=== PATIENT | male | born 1980 | race African-American/Black ===

== ENCOUNTER 2016-05-15 08:56 | Inpatient (IN) | payer OTHER ==
--- NOTE | ~2016-05-15 | PA ---
Unit #: [id number] #: [id number] Patient: PAUL SHI [id number] [facility] [address] [place] [address] [id number] MR#: [id number] NAME: PAUL SHI ROOM: 66 Age: 36 Sex: M Admission Date: 05/15/2016 : 1980 Date of Assessment: 05/16/2016 Attending Physician: Deny Nick M.D. Admitting Physician: Deny Nick M.D. Primary Care Physician: Generic Doctor Not In System PSYCHIATRIC ASSESSMENT IDENTIFYING INFORMATION The patient is a 36-year-old single male admitted after he had summoned police to his home voicing positive suicidal ideation and pain in his neck. INFORMANT(S) Patient. RELIABILITY Fair. CHIEF COMPLAINT My neck hurts. HISTORY OF PRESENT ILLNESS The patient is a 36-year-old male who summoned EMS to his home early yesterday morning complaining of increasing neck pain as well as some depressed mood and thoughts of suicide. He had also complained of poor sleep. The patient has a history of alcohol and cocaine abuse and had recently used cocaine. The patient when seen this morning is rather vague in his complaints. He is reporting no suicidal ideation at this point and denies any homicidal ideation. He does complain of some recent poor sleep but denies recent changes in appetite. 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 The patient lives with his aunt who apparently recently underwent brain surgery. The patient states that he is concerned that she "still looks sick." The patient has been incarcerated in the past on child support charges. He reports no pending legal charges at this time. PAST PSYCHIATRIC HISTORY None. FAMILY HISTORY Noncontributory. SOCIAL HISTORY The patient lives with his aunt. He completed the 9th grade. He is the father of 1 out of wedlock child. MEDICAL HISTORY Noncontributory. Unit #: [id number] #: [id number] Patient: PAUL SHI MEDICATION HISTORY None. ALLERGIES None. SUBSTANCE ABUSE HISTORY He reports substance use as noted previously and is a smoker. MENTAL STATUS EXAM At this time, reveals the patient to be a well-developed, well-nourished heavily tattooed male appearing his stated age. He is in no apparent physical distress at the time of the examination. He is awake, alert, oriented in all spheres. His mood is mildly dysphoric. His affect constricted and somewhat strange. Speech is oddly evasive. There are no gross deficits in memory or cognition noted. Intelligence is judged to be in the average range based on fund of knowledge. The patient is generally cooperative during interview. He is currently denying suicidal or homicidal ideation or psychotic features. Judgement and insight appear to be intact. ASSETS AND LIABILITIES Patient's assets to be assessed. Liabilities, lack of resources. ADMITTING DIAGNOSES 1. Dysthymic disorder. 2. Cocaine use disorder. 3. Alcohol use disorder. PSYCHIATRIC PLAN/TREATMENT GOALS The patient remains hospitalized for safety and stabilization. At this point, his mood symptoms are somewhat difficult to tease out and I suspect that yesterday's symptoms may have been related to post cocaine depressive symptoms as the patient seems significantly brighter today. I will transfer the patient to a chemical dependence treatment unit and will at this point hold on initiation of antidepressant or other psychotropic medication. ESTIMATED LENGTH OF STAY Three to five days. Dictated by... Deny Nick M.D. NADEGE/rajesh TD: 05/16/2016 11:35 JOB #: [id number] Unit #: [id number] #: [id number] Patient: PAUL SHI PSYCHIATRIC ASSESSMENT X Deny Nick MD X PSYCHIATRIC ASSESSMENT
--- NOTE | ~2016-05-15 | PN ---
Unit #: [id number] #: [id number] Patient: PAUL SHI [id number] [facility] [address] [place] [address] [id number] I MR#: [id number] NAME: PAUL SHI ROOM: P202 Age: 36 Sex: M Admission Date: 05/15/2016 : 1980 Attending Physician: Deny Nick M.D. Admitting Physician: Deny Nick M.D. Primary Care Physician: Generic Doctor Not In System [facility] PROGRESS NOTES DATE 05/16/2016 DISCUSSION The patient continues to endorse positive suicidal ideation stating that he will use his "pellet gun" to end his life if discharged. He continues to have vague complaints of chest pain and anxiety and is participating to no significant degree within the therapeutic milieu. I have gently, but firmly contrived the patient regarding my expectations and that he increase his participation. Dictated by... Deny Nick M.D. CB/shaina TD: 05/17/2016 14:23 JOB #: [id number] [facility] PROGRESS NOTES X Deny Nick MD PROGRESS NOTE
--- NOTE | ~2016-05-15 | DS ---
Unit #: [id number] #: [id number] Patient: PAUL SHI [id number] [facility] [address] [place] [address] [id number] MR#: [id number] NAME: PAUL SHI ROOM: P202 Age: 36 Sex: M Admission Date: 05/15/2016 : 1980 Discharge Date: 05/18/2016 Attending Physician: Deny Nick M.D. Primary Care Physician: Generic Doctor Not In System DISCHARGE SUMMARY REASON FOR ADMISSION The patient is a 36-year-old male, initially admitted complaining of neck and back pain and then voicing suicidal ideation. HOSPITAL COURSE The patient was admitted to the [address] [place] [address] unit and placed on suicide precautions. Routine detoxification protocol for alcohol was initiated. The patient exhibited little signs or symptoms of withdrawal. He declined medication throughout his stay in the hospital and participated to no significant degree. Whatsoever, he continued with vague complaints regarding his neck and back, but denied suicidal ideation when seen by this physician on 05/17/2016. On 05/18/2016, the patient continued to deny suicidal or homicidal ideation and exhibited no signs or symptoms of withdrawal. Discharge was ordered. FINAL DIAGNOSES Cocaine use disorder, alcohol use disorder. DISPOSITION ON DISCHARGE No psychotropic medications were ordered at the time of discharge and as per the patient's request, no arrangements for followup were made. PROGNOSIS The patient's prognosis is considered fair at best. ADDENDUM It is recommended the patient continue previously prescribed Mobic 15 mg once daily for osteoarthritis and Flexeril 10 mg q.8 hours for muscle relaxation; however, this physician will not prescribe these medications for the patient. Dictated by... Deny Nick M.D. CB/gregorio TD: 05/19/2016 00:05 JOB #: [id number] Unit #: [id number] #: [id number] Patient: PAUL SHI DISCHARGE SUMMARY X Deny Nick MD DISCHARGE SUMMARY
--- NOTE | ~2016-05-15 | HP ---
Unit #: [id number] #: [id number] Patient: BRODERICK HSI [id number] [place] [address] [id number] I MR#: [id number] NAME: BRODERICK SHI ROOM: [facility] Age: 36 Sex: M Admission Date: 05/15/2016 : 1980 Attending Physician: Deny Nick M.D. Admitting Physician: Deny Nick M.D. Primary Care Physician: Generic Doctor Not In System HISTORY AND PHYSICAL HISTORY OF PRESENT ILLNESS Broderick is a 36 year old admitted to [address] [place] [address] because he is having "problems with my thinking." PAST MEDICAL HISTORY Nothing reported. PAST SURGICAL HISTORY Cranial surgery. ALLERGIES No known drug allergies. SOCIAL HISTORY Smokes 1 pack per day. Drinks beer on a regular basis and admits to using cocaine occasionally. FAMILY HISTORY Medically noncontributory. REVIEW OF SYSTEMS CONSTITUTIONAL: No fever or chills. HEENT: Denies any sore throat, ear pain or runny nose. CARDIOVASCULAR: Denies chest pain, irregular heart rhythm or palpitations. CHEST: Denies shortness of breath or cough. No hemoptysis. GASTROINTESTINAL: Denies nausea, vomiting, diarrhea or chronic constipation. ENDOCRINE: Denies history of increased thirst or urination. No recent significant weight loss or gain. GENITOURINARY: Denies dysuria, frequency, or hematuria. SKIN: Denies any rashes. HEMATOLOGIC: Denies history of increased bleeding or bruising. MUSCULOSKELETAL: Denies any hot, swollen joints. No generalized muscle pain. NEUROLOGIC: Denies problems with vision or speech. No frequent, severe headaches. No numbness, tingling or weakness in any extremities. Denies loss of bladder or bowel control. CURRENT MEDICATIONS 1. Zyprexa Zydis 10 mg q. 8 hours p.r.n. 2. Milk of Magnesia p.r.n. 3. Maalox p.r.n. 4. Tylenol p.r.n. Unit #: [id number] #: [id number] Patient: BRODERICK SHI 5. Nicotine patch 14 mg daily. PHYSICAL EXAMINATION GENERAL: Alert, well-nourished, in no apparent distress. VITAL SIGNS: Blood pressure 134/60, heart rate 64, respirations 16, temperature 98.6. WEIGHT: 154. HEIGHT: 5 feet 2 inches. SKIN: Warm and dry without rash or lesion. HEENT: Normocephalic. TMs not viewed. Oral and nasal passages clear. Conjunctivae clear. PERRLA. EOMs intact. NECK: Supple without lymphadenopathy or thyromegaly. HEART: Regular rate and rhythm without murmur. LUNGS: Clear. ABDOMEN: Soft, nontender. : Not done. EXTREMITIES: No evidence of cyanosis, clubbing or edema. Moves all without focal deficit. NEUROLOGICAL: Grossly within normal limits. Cranial Nerves: II: Visual munoz are intact. III, IV AND : Extraocular movements are intact. Pupils are equal, round and reactive to light. V: Facial sensation is grossly normal. VII: Facial movements and expression are normal. VIII: Auditory acuity grossly intact. IX, X: Uvula is midline. Phonation is normal. XI: Patient shrugs shoulders and turns head normally. XII: Tongue protrudes in the midline. Sensory and Motor Function: Sensory and motor sensation is grossly normal. Motor: moves all extremities well. Coordination: Gait is normal. Deep Tendon Reflexes: Intact. IMPRESSION Psychiatric admission. RECOMMENDATIONS PSYCHIATRIC: Per psychiatrist. MEDICAL: See no contraindications to participate in facility's activities. MEDICAL PROGNOSIS Good. MEDICAL CONDITION Stable. Dictated by... Dayna Avila P.A.-C. for Marcos Pardo/rajesh TD: 05/16/2016 11:01 JOB #: [id number] Unit #: [id number] #: [id number] Patient: BRODERICK SHI HISTORY AND PHYSICAL X Dayna Avila HISTORY AND PHYSICAL
--- NOTE | ~2016-05-15 | CO ---
Unit #: [id number] #: [id number] Patient: BRODERICK SHI [id number] [place] [address] [id number] I MR#: [id number] NAME: BRODERICK SHI ROOM: P202 Age: 36 Sex: M Admission Date: 05/15/2016 : 1980 Attending Physician: Deny Nick M.D. Primary Care Physician: Generic Doctor Not In System Consultation Date: 05/16/2016 CONSULTATION REPORT HISTORY OF PRESENT ILLNESS Broderick is a 36-year-old male, who has complaints of pain in his neck and head off and on for the past 5 years. He reports the pain in his neck starts as a pinching pain and causes a headache. He takes ibuprofen and massages his neck, which seems to help. He has never had any diagnosis. No numbness or tingling in his fingers. No changes in vision. No other complaints. PHYSICAL EXAMINATION GENERAL: Alert and oriented, in no acute distress. CARDIAC: Regular rate and rhythm. No murmur, gallop, or rub. RESPIRATORY: Clear to auscultation bilaterally. NEURO: Cranial nerves intact. ASSESSMENT AND PLAN Neck and head pain. We will begin meloxicam 15 mg p.o. daily p.r.n. neck pain and Flexeril 10 mg p.o. q.8 hours p.r.n. neck pain. Dictated by... Yoko Talbot A.P.R.N. for Marcos Pardo/gregorio TD: 05/16/2016 23:45 JOB #: [id number] CONSULTATION REPORT X YOKO MONTANO APRN X CONSULTATION REPORT
[2016-05-16 11:32] LABS: BASOPHIL% 1.2 % (0-2.5); EOSINOPHIL# 0.2 X10e3 (0-0.7); EOSINOPHIL% 6.2 % (0.0-7.0); HEMATOCRIT 44.6 % (38.0-50.0); HEMOGLOBIN 14.5 gm/dL (13.0-16.0); LYMPHOCYTE# 1.6 X10e3 (1.0-3.5); LYMPHOCYTE% 43.6 % (17.0-45.0); MEAN CELL VOLUME 89.3 FL (83-96); MEAN CORPUSCULAR HEMOGLOBIN 29.1 PG (28-34); MEAN CORPUSCULAR HGB CONC 32.6 g/dL (30-36); MEAN PLATELET VOLUME 8.8 FL (6.5-11.5); MONOCYTE# 0.5 X10e3 (0-1.0); MONOCYTE% 12.4 % (3.0-12.0); NEUTROPHIL# 1.4 X10e3 (1.5-7.1); NEUTROPHIL% 36.6 % (40-75); PLATELET COUNT 220 X10e3 (140-420); RED CELL DISTRIBUTION WIDTH 13.7 % (11.0-15.5); WHITE BLOOD COUNT 3.8 X10e3 (4.0-10.5)
[2016-05-16 11:34] LABS: DIFF IND NO
[2016-05-16 12:10] LABS: THYROID STIMULATING HORMONE 0.33 uIU/ml (0.34-5.60)
[2016-05-16 12:11] LABS: ALBUMIN SERUM 4.1 g/dL (3.5-5.0); ALKALINE PHOSPHATASE 47 U/L (32-92); ALT (SGPT) 17 U/L (10-40); AST (SGOT) 20 U/L (10-42); BILIRUBIN,TOTAL 1.3 mg/dL (0.2-2.0); BLOOD UREA NITROGEN 14 mg/dL (9-23); BUN/CREATININE RATIO 11.66; CALCIUM SERUM 9.3 mg/dL (8.4-10.2); CARBON DIOXIDE 29 mmol/L (22-31); CHLORIDE 104 mmol/L (100-111); CREATININE SERUM 1.2 mg/dL (0.6-1.4); GLOM FILT RATE Estimated ABOVE60 mL/min (>60); GLUCOSE FASTING 81 mg/dL (70-110); PROTEIN TOTAL SERUM 7.2 g/dL (6.0-8.3); SODIUM 137 mmol/L (135-145)
[2016-05-16 12:17] LABS: FREE THYROXIN (T4) 0.91 ng/dL (0.58-1.64)
[2016-05-16 14:24] LABS: URINE APPEARANCE TURBID; URINE BILIRUBIN NEG (NEG); URINE BLOOD TRACE (NEG); URINE COLOR YELLOW; URINE GLUCOSE NEG (NEG); URINE KETONE NEG (NEG); URINE LEUKOCYTE ESTERASE TRACE (NEG); URINE NITRATE NEG (NEG); URINE PROTEIN NEG (NEG); URINE SPECIFIC GRAVITY 1.029 (1.003-1.035); URINE UROBILINOGEN 0.2 MG/DL (NEG)
[2016-05-16 14:27] LABS: URBCS1 AUWI 0-2 /[HPF] (0-2); URINE BACTERIA AUWI NEG (NEGATIVE); URINE SQUAMOUS EPITHELIAL CELL NONE SEEN /[HPF]
[2016-05-16 14:40] LABS: AMPHETAMINE NEG (NEG); BARBITURATES NEG (NEG); BENZODIAZEPINES NEG (NEG); COCAINE POS (NEG); MARIJUANA NEG (NEG); OPIATES NEG (NEG); TRICYCLIC ANTIDEPRESSANTS NEG (NEG); U METHADONE NEG (NEG)
== END 2016-05-18 17:33 | disposition home or self-care (01) | DRG 881 ==
LOC: POF 08:56 → P1S 11:08 → P2L 12:31 → POF 15:30 → P2L 15:32 → P2S 05-16 14:04 → POF 05-18 13:57 → P2S 05-18 14:00
PROVIDERS: Specialist
DX: F34.1 Dysthymic disorder (principal); F14.20 Cocaine dependence, uncomplicated; R45.851 Suicidal ideations; F10.20 Alcohol dependence, uncomplicated; F17.200 Nicotine dependence, unspecified, uncomplicated
CPT/HCPCS: 80053; 80307; 81003; 84439; 84443; 85025; 90688

== ENCOUNTER 2016-07-07 09:44 | Inpatient (IN) | payer OTHER ==
--- NOTE | ~2016-07-07 | DS ---
Unit #: [id number] #: [id number] Patient: PAUL SHI [id number] [facility] [address] [place] [address] [id number] I MR#: [id number] NAME: PAUL SHI ROOM: [facility] Age: 36 Sex: M Admission Date: 07/07/2016 : 1980 Discharge Date: 07/07/2016 Attending Physician: Deny Nick M.D. Primary Care Physician: Generic Doctor Not In System DISCHARGE SUMMARY REASON FOR ADMISSION The patient is a 36-year-old male, admitted complaining of neck and back pain. HOSPITAL COURSE The patient was admitted to the [address] [place] [address] unit and placed on suicide precautions initially. He was seen by this physician on 07/07/2016 and at that point, the patient again claimed that he was in the hospital secondary to back and neck pain. He denied suicidal ideation, though he did state that he often became lonely when his aunt leaves him at home alone. It was explained to the patient that these are not criteria for hospitalization in the psychiatric facility. The patient was understanding and agreed with plan for followup through the auspices of community mental health resources. Discharge was ordered. FINAL DIAGNOSES Malingering, cocaine use disorder, alcohol use disorder. DISPOSITION ON DISCHARGE No psychotropic or other medications were ordered at the time of discharge. PROGNOSIS The patient's prognosis is considered guarded. Dictated by... Deny Nick M.D. NADEGE/gregorio TD: 07/08/2016 00:56 JOB #: [id number] DISCHARGE SUMMARY Page 1 of 1 X Deny Nick MD X DISCHARGE SUMMARY
--- NOTE | ~2016-07-07 | HP ---
Unit #: [id number] #: [id number] Patient: BRODERICK SHI [id number] [facility] [address] [place] [address] [id number] I MR#: [id number] NAME: BRODERICK SHI ROOM: [facility] Age: 36 Sex: M Admission Date: 07/07/2016 : 1980 Attending Physician: Deny Nick M.D. Admitting Physician: Deny Nick M.D. Primary Care Physician: Generic Doctor Not In System HISTORY AND PHYSICAL Broderick is a 36 year old who was admitted and discharged within the first 24 hours. He was not seen for an H and P. Dictated by... Dayna Avila P.A.-C. for Marcos Pardo/rajesh TD: 07/07/2016 18:40 JOB #: [id number] HISTORY AND PHYSICAL Page 1 of 1 X Dayna Avila X HISTORY AND PHYSICAL
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
== END 2016-07-07 16:15 | disposition home or self-care (01) | DRG 951 ==
LOC: P2L 09:44
DX: Z76.5 Malingerer [conscious simulation] (principal); F14.90 Cocaine use, unspecified, uncomplicated

== ENCOUNTER 2016-09-12 13:00 | Inpatient (IN) | payer OTHER ==
--- NOTE | ~2016-09-12 | PN ---
Unit #: [id number] #: [id number] Patient: PAUL SHI [id number] [facility] [address] [place] [address] [id number] I MR#: [id number] NAME: PAUL SHI ROOM: P186 Age: 36 Sex: M Admission Date: 09/12/2016 : 1980 Attending Physician: Deny Nick M.D. Admitting Physician: Deny Nick M.D. Primary Care Physician: Primary Care Physician Linda ARTHUR PROGRESS NOTES DATE 09/15/2016 DISCUSSION The patient remains seclusive to room with little participation within the therapeutic milieu. He is today denying suicidal ideation or psychotic symptom. Should he sustain progress discharge will likely take place tomorrow. Dictated by... Deny Nick M.D. CB/jody TD: 09/16/2016 04:18 JOB #: [id number] [facility] PROGRESS NOTES Page 1 of 1 X Deny Nick MD X PROGRESS NOTE
--- NOTE | ~2016-09-12 | DS ---
Unit #: [id number] #: [id number] Patient: PAUL SHI [id number] [facility] [address] [place] [address] [id number] I MR#: [id number] NAME: PAUL SHI ROOM: [facility] Age: 36 Sex: M Admission Date: 09/12/2016 : 1980 Discharge Date: 09/16/2016 Attending Physician: Deny Nick M.D. Primary Care Physician: Primary Care Physician No DISCHARGE SUMMARY REASON FOR ADMISSION The patient is a 36-year-old male, admitted following after he reported positive suicidal ideation related to increasing cocaine abuse. HOSPITAL COURSE The patient was admitted to the [facility] Unit, placed on suicide precautions. No medications were ordered during the patient's stay in the hospital. His participation within the therapeutic milieu was quite poor with the patient exhibiting little if any, investment in treatment. By 09/16, the patient exhibited no signs or symptoms of withdrawal and denied suicidal ideation. He requested discharge and it was so ordered. FINAL DIAGNOSES Cocaine use disorder. Mood disorder, unspecified. DISPOSITION ON DISCHARGE No psychotropic or other medications ordered at the time of discharge. FOLLOWUP Followup will take place through the auspices of community mental health and chemical dependency treatment resources. PROGNOSIS The patient's prognosis is considered guarded secondary to his lack of investment in treatment. Dictated by... Deny Nick M.D. CB/belkisl TD: 09/17/2016 10:21 JOB #: [id number] Unit #: [id number] #: [id number] Patient: PAUL SHI DISCHARGE SUMMARY Page 1 of 1 X Deny Nick MD X DISCHARGE SUMMARY
--- NOTE | ~2016-09-12 | PA ---
Unit #: [id number] #: [id number] Patient: PAUL SHI [id number] [facility] [address] [place] [address] [id number] I MR#: [id number] NAME: PAUL SHI ROOM: [facility] Age: 36 Sex: M Admission Date: 09/12/2016 : 1980 Date of Assessment: 09/13/2016 Attending Physician: Deny Nick M.D. Admitting Physician: Deny Nick M.D. Primary Care Physician: Primary Care Physician No PSYCHIATRIC ASSESSMENT IDENTIFYING INFORMATION The patient is a 36-year-old -[place] male admitted after presenting to this facility voicing positive suicidal ideation. CHIEF COMPLAINT None given. INFORMANT(S) Chart. Patient could not be aroused for interview. HISTORY OF PRESENT ILLNESS The patient is a 36-year-old -[place] male admitted after he had come to this facility voicing positive suicidal ideation. The patient reports that he has been using 40 to 50 dollars' worth of cocaine on a daily basis and reports that as a result he has been having increasing depressive symptoms, unstable mood and positive suicidal ideation with a plan to shoot himself or hang himself. The patient states that he is not acting on these thoughts simply because he has been "too weak to do so." The patient reports no previous psychiatric or chemical dependence treatment. He is currently on no prescribed psychotropic medications. PAST PSYCHIATRIC HISTORY None. PAST MEDICAL HISTORY Noncontributory. MEDICATIONS None. ALLERGIES None. FAMILY HISTORY Noncontributory. SOCIAL HISTORY The patient's cocaine use as noted previously. He also reports intermittent alcohol use and is a smoker. MENTAL STATUS EXAM At this time, reveals the patient to be a soundly sleeping male appearing his stated age. He is in no apparent physical Unit #: [id number] #: [id number] Patient: PAUL SHI distress at the time of the examination. Multiple attempts to arouse the patient are unsuccessful. ASSETS AND LIABILITIES ASSETS: To be assessed. LIABILITIES: Lack of resources. DIAGNOSTIC IMPRESSION 1. Cocaine use disorder. 2. Dysthymic disorder. TREATMENT PLAN Patient remains hospitalized for safety and stabilization. Suicidal precautions remain in place. At this point no pharmacotherapy intervention will be undertaken. The patient will be encouraged to participate within the therapeutic milieu and suicidal precautions remain in place. ESTIMATE LENGTH OF STAY IN THE HOSPITAL Three to five days. Dictated by... Deny Nick M.D. NADEGE/jody TD: 09/14/2016 03:00 JOB #: [id number] PSYCHIATRIC ASSESSMENT Page 1 of 1 X Deny Nick MD X PSYCHIATRIC ASSESSMENT
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
--- NOTE | ~2016-09-12 | HP ---
Unit #: [id number] #: [id number] Patient: PAUL SHI [id number] [facility] [address] [place] [address] [id number] I MR#: [id number] NAME: PAUL SHI ROOM: 86 Age: 36 Sex: M Admission Date: 09/12/2016 : 1980 Attending Physician: Deny Nick M.D. Admitting Physician: Deny Nick M.D. Primary Care Physician: Primary Care Physician No HISTORY AND PHYSICAL The patient is a 36-year-old male admitted to [facility] on 09/12/2016 for suicidal ideations. The patient had a recent admission on 08/29/2016 where a full history and physical was completed. That history and physical has been reviewed. No changes need to be made. Dictated by... Ulises Curtis/jody TD: 09/14/2016 05:33 JOB #: [id number] HISTORY AND PHYSICAL Page 1 of 1 X KYA MARTINEZ APRN X HISTORY AND PHYSICAL
[2016-09-13 11:30] LABS: BASOPHIL# 0.1 X10e3 (0-0.3); BASOPHIL% 1.6 % (0-2.5); EOSINOPHIL# 0.3 X10e3 (0-0.7); EOSINOPHIL% 6.2 % (0.0-7.0); HEMATOCRIT 42.6 % (38.0-50.0); LYMPHOCYTE# 1.5 X10e3 (1.0-3.5); LYMPHOCYTE% 30.8 % (17.0-45.0); MEAN CELL VOLUME 90.5 FL (83-96); MEAN CORPUSCULAR HEMOGLOBIN 29.8 PG (28-34); MEAN CORPUSCULAR HGB CONC 32.9 g/dL (30-36); MEAN PLATELET VOLUME 9.3 FL (6.5-11.5); MONOCYTE# 0.6 X10e3 (0-1.0); MONOCYTE% 11.3 % (3.0-12.0); NEUTROPHIL# 2.5 X10e3 (1.5-7.1); NEUTROPHIL% 50.1 % (40-75); PLATELET COUNT 261 X10e3 (140-420); RED BLOOD COUNT 4.71 X10e (3.90-5.60); RED CELL DISTRIBUTION WIDTH 13.5 % (11.0-15.5); WHITE BLOOD COUNT 4.9 X10e3 (4.0-10.5)
[2016-09-13 11:33] LABS: DIFF IND NO
[2016-09-13 11:47] LABS: ALBUMIN SERUM 3.7 g/dL (3.5-5.0); BILIRUBIN,TOTAL 0.8 mg/dL (0.2-2.0); BUN/CREATININE RATIO 5.83; CALCIUM SERUM 9.4 mg/dL (8.4-10.2); CREATININE SERUM 1.2 mg/dL (0.6-1.4); GLOM FILT RATE Estimated 90.3 mL/min (>60); POTASSIUM 4.4 mmol/L (3.5-5.1); PROTEIN TOTAL SERUM 6.7 g/dL (6.0-8.3)
[2016-09-14 10:00] LABS: URINE APPEARANCE CLEAR; URINE BILIRUBIN NEG (NEG); URINE BLOOD NEG (NEG); URINE COLOR YELLOW; URINE GLUCOSE NEG (NEG); URINE KETONE NEG (NEG); URINE LEUKOCYTE ESTERASE NEG (NEG); URINE NITRATE NEG (NEG); URINE PROTEIN NEG (NEG); URINE SPECIFIC GRAVITY 1.014 (1.003-1.035); URINE UROBILINOGEN 0.2 MG/DL (NEG)
[2016-09-14 10:14] LABS: AMPHETAMINE NEG (NEG); BARBITURATES NEG (NEG); BENZODIAZEPINES NEG (NEG); COCAINE NEG (NEG); MARIJUANA NEG (NEG); OPIATES NEG (NEG); TRICYCLIC ANTIDEPRESSANTS NEG (NEG); U METHADONE NEG (NEG)
== END 2016-09-16 16:15 | disposition home or self-care (01) | DRG 897 ==
LOC: P1E 14:40
PROVIDERS: Specialist
DX: F14.10 Cocaine abuse, uncomplicated (principal); R45.851 Suicidal ideations; F34.1 Dysthymic disorder
CPT/HCPCS: 80053; 80307; 81003; 85025

== ENCOUNTER 2016-09-19 08:00 | Inpatient (IN) | payer OTHER ==
[~2016-09-19] VITALS: Ht 165.1 cm; Wt 68.0 kg
--- NOTE | ~2016-09-19 | PN ---
Unit #: [id number] #: [id number] Patient: PAUL SHI [id number] [facility] [address] [place] [address] [id number] MR#: [id number] NAME: PAUL SHI ROOM: [facility] Age: 36 Sex: M Admission Date: 09/19/2016 : 1980 Attending Physician: Deny Nick M.D. Admitting Physician: Marcos Munguia PROGRESS NOTES DATE 09/21/2016 DISCUSSION The patient is (1) when confronted by his decision today regarding his failure to attend an on-unit therapeutic activity. This had been his standard behavior during his previous admission to this facility when he was failing to attend any therapeutic activities. The patient today complains of "my big toe hurts." I have explained to the patient that this facility does not specialize in podiatry, and that he will need to seek care for this outside of the hospital. In the meantime, we will continue his trial of Remeron and except a.m. discharge. Dictated by... Deny Nick M.D. NADEGE/tee TD: 09/21/2016 15:17 JOB #: [id number] JERSON BALL NOTES Page 1 of 1 X Deny Nick MD PROGRESS NOTE
--- NOTE | ~2016-09-19 | DS ---
Unit #: [id number] #: [id number] Patient: PAUL SHI [id number] [facility] [address] [place] [address] [id number] MR#: [id number] NAME: PAUL SHI [facility] Age: 36 Sex: M Admission Date: 09/19/2016 : 1980 Discharge Date: 09/22/2016 Attending Physician: Deny Nick M.D. Primary Care Physician: Primary Care Physician No DISCHARGE SUMMARY REASON FOR ADMISSION The patient is a 36-year-old male, admitted after he presented to this facility claiming to be suicidal and abusing cocaine. HOSPITAL COURSE The patient was initially admitted to the [facility] unit, but was transferred to the [address] [place] [address] unit and placed on room lockout precautions. He remained purposefully vague throughout his stay in the hospital regarding his reason for being in the hospital, claiming that he was "bored at home" and upset that there was no food in his home. The patient did participate briefly within the therapeutic milieu. He was started on Remeron 15 mg at h.s., which he tolerated without complaint. By 09/22/2016, the patient was felt to have reached maximum benefit from inpatient psychiatric care. Discharge was ordered. FINAL DIAGNOSES Cocaine use disorder; depressive disorder, unspecified. DISPOSITION ON DISCHARGE The patient is discharged on the following medications; Remeron 15 mg at bedtime. DISCHARGE INSTRUCTIONS No dietary or physical restrictions were placed on the patient at the time of discharge. FOLLOWUP Followup will take place through the auspices of community mental health and chemical dependency treatment resources. PROGNOSIS The patient's prognosis is considered fair. Dictated by... Deny Nick M.D. CB/gregorio TD: 09/22/2016 23:58 JOB #: [id number] Unit #: [id number] #: [id number] Patient: PAUL SHI DISCHARGE SUMMARY Page 1 of 1 X Deny Nick MD X DISCHARGE SUMMARY
--- NOTE | ~2016-09-19 | PN ---
Unit #: [id number] #: [id number] Patient: PAUL SHI [id number] [facility] [address] [place] [address] [id number] I MR#: [id number] NAME: PAUL SHI ROOM: 13 Age: 36 Sex: M Admission Date: 09/19/2016 : 1980 Attending Physician: Deny Nick M.D. Admitting Physician: Deny Nick M.D. Primary Care Physician: Primary Care Physician Linda ARTHUR PROGRESS NOTES DATE 09/20/2016 DISCUSSION The patient is active within the therapeutic milieu and is actually pleasant in his interactions with this physician today. Staff reports that the patient is sleeping poorly and he is complaining of some depressive symptoms. I will add Remeron 15 mg at h.s. to address the patient's symptoms. Dictated by... Deny Nick M.D. CB/jody TD: 09/20/2016 22:49 JOB #: [id number] JERSON PROGRESS NOTES Page 1 of 1 X Deny Nick MD PROGRESS NOTE
--- NOTE | ~2016-09-19 | PA ---
Unit #: [id number] #: [id number] Patient: PAUL SHI [id number] [facility] [address] [place] [address] [id number] I MR#: [id number] NAME: PAUL SHI ROOM: [facility] Age: 36 Sex: M Admission Date: 09/19/2016 : 1980 Date of Assessment: 09/19/2016 Attending Physician: Deny Nick M.D. Admitting Physician: Deny Nick M.D. Primary Care Physician: Primary Care Physician No PSYCHIATRIC ASSESSMENT IDENTIFYING INFORMATION The patient is a 36-year-old male admitted after he had presented to this facility claiming to be suicidal. CHIEF COMPLAINT None given. INFORMANT(S) Patient and chart, reliability fair. HISTORY OF PRESENT ILLNESS The patient is a 36-year-old male just discharged from this facility on 09/16/2016. During that stay in the hospital, the patient participated to no significant degree whatsoever in programming and was always rather vague as to why he had come to the hospital. The patient has returned to the hospital and has been brought by the Crisis Intervention Team whose note indicates that he had called the [facility] crisis line claiming to be suicidal. When queried regarding this today, the patient states that he is "all bored and shit" at home and states that "there ain't no food" at home and that this was the reason for his call to the hospital. He is at this point denying suicidal ideation. For more complete history of present illness, please refer to previously dictated notes. PAST PSYCHIATRIC HISTORY Reviewed, no changes. PAST MEDICAL HISTORY Reviewed, no changes. MEDICATIONS None. ALLERGIES None. FAMILY HISTORY Reviewed, no changes. SOCIAL HISTORY Reviewed, no changes. MENTAL STATUS EXAMINATION Unit #: [id number] #: [id number] Patient: PAUL SHI Examination at this time reveals the patient to be a well-developed well-nourished male appearing stated age. He is in no apparent physical distress at the time of examination. He is awake, alert, and oriented in all spheres. His mood is mildly dysphoric and irritable, his affect constricted. Speech is generally well-coherent. There are no gross deficits in memory or cognition noted. Intelligence is judged to be in the average range based on fund of knowledge. The patient is less than optimally cooperative during interview. He is denying current suicidal or homicidal ideation and denies any psychotic symptoms. ASSETS AND LIABILITIES The patient's assets are to be assessed. Liabilities: Tendency towards malingering, lack of investment in treatment. DIAGNOSTIC IMPRESSION 1. Cocaine use disorder by history. 2. Mood disorder unspecified. 3. Malingering. TREATMENT PLAN The patient remains hospitalized for safety and stabilization. Given his threats of suicide, we will transfer the patient to the [address] [place] [address] and to assure her safety place him on room lockout precautions from 6 a.m. to 10 p.m. The patient will be encouraged to participate in appropriate order of milieu activities. No pharmacologic intervention is felt to be needed at this time. ESTIMATED LENGTH OF STAY 3 to 4 days. Dictated by... Deny Nick M.D. NADEGE/evelyne TD: 09/19/2016 14:34 JOB #: [id number] PSYCHIATRIC ASSESSMENT Page 1 of 1 X Deny Nick MD X PSYCHIATRIC ASSESSMENT
--- NOTE | ~2016-09-19 | HP ---
Unit #: [id number] #: [id number] Patient: PAUL SHI [id number] [facility] [address] [place] [address] [id number] MR#: [id number] NAME: PAUL SHI ROOM: 13 Age: 36 Sex: M Admission Date: 09/19/2016 : 1980 Attending Physician: Deny Nick M.D. Admitting Physician: Deny Nick M.D. Primary Care Physician: Primary Care Physician No HISTORY AND PHYSICAL The patient is a 36-year-old male admitted to [facility] on 09/19/2016 for suicidal ideations. The patient had a recent admission on 08/29/2016 where a full history and physical was completed. That history and physical has been reviewed, no changes need to be made. Dictated by... Ulises Curtis/jody TD: 09/21/2016 02:05 JOB #: [id number] HISTORY AND PHYSICAL Page 1 of 1 X KYA MARTINEZ APRN X HISTORY AND PHYSICAL
== END 2016-09-22 15:47 | disposition home or self-care (01) | DRG 885 ==
LOC: P1S 10:03 → P1E 10:03 → P1S 14:57
DX: F39 Unspecified mood [affective] disorder (principal); R45.851 Suicidal ideations; Z76.5 Malingerer [conscious simulation]

== ENCOUNTER 2016-10-05 11:00 | Inpatient (IN) | payer OTHER ==
[~2016-10-05] VITALS: Ht 167.6 cm; Wt 68.0 kg
--- NOTE | ~2016-10-05 | PN ---
Unit #: [id number] #: [id number] Patient: PAUL SHI [id number] [facility] [address] [place] [address] [id number] MR#: [id number] NAME: PAUL SHI ROOM: P256 Age: 36 Sex: M Admission Date: 10/05/2016 : 1980 Attending Physician: Deny Nick M.D. Admitting Physician: Deny Nick M.D. Primary Care Physician: Marcos Lockhart PROGRESS NOTES DATE 10/07/2016 DISCUSSION Staff reports that the patient has been active within the therapeutic milieu with a threat of room lockout hanging over his head. He continues to endorse feelings of depression but reports reduced suicidal ideation when seen today. Dictated by... Deny Nick M.D. CB/evelyne TD: 10/07/2016 13:27 JOB #: [id number] JERSON PROGRESS NOTES Page 1 of 1 X Deny Nick MD PROGRESS NOTE
--- NOTE | ~2016-10-05 | PN ---
Unit #: [id number] #: [id number] Patient: PAUL SHI [id number] [facility] [address] [place] [address] [id number] MR#: [id number] NAME: PAUL SHI ROOM: P256 Age: 36 Sex: M Admission Date: 10/05/2016 : 1980 Attending Physician: Deny Nick M.D. Admitting Physician: Deny Nick M.D. Primary Care Physician: Marcos Lockhart PROGRESS NOTES DATE 10/08/2016 DISCUSSION The patient is abed today complaining of severe headache. We have ordered p.r.n. Tylenol. I told the patient that we expect him to continue participation within the therapeutic milieu, but I am excusing him from today's art therapy secondary to his complaints of headache. I have also told the patient to expect a.m. discharge. Dictated by... Deny Nick M.D. CB/bzg TD: 10/08/2016 14:04 JOB #: [id number] JERSON PROGRESS NOTES Page 1 of 1 X Deny Nick MD X PROGRESS NOTE
--- NOTE | ~2016-10-05 | DS ---
Unit #: [id number] #: [id number] Patient: PAUL SHI [id number] [facility] [address] [place] [address] [id number] MR#: [id number] NAME: PAUL SHI ROOM: [facility] Age: 36 Sex: M Admission Date: 10/05/2016 : 1980 Discharge Date: 10/09/2016 Attending Physician: Deny Nick M.D. Primary Care Physician: Maldonado Cruz M.D. DISCHARGE SUMMARY REASON FOR ADMISSION The patient is a 36-year-old male admitted complaining of suicidal ideation with plan to shoot himself using a pellet gun. HOSPITAL COURSE The patient was admitted to the [facility] unit and placed on suicide precautions. He complained that he had been unable to afford his prescription for Remeron and he was therefore taken off this medication and begun on citalopram 20 mg daily to addressed his depressive symptoms. It remained the feeling of this position that the patient's primary pathology was related to a combination of cocaine abuse, characterologic pathology and no small degree of malingering; however, by 10/09/2016, however, the patient did participate more actively within the therapeutic milieu, having been threatened with room lockout if he did not do so by 10/09/2016. The patient denied suicidal ideation. Discharge was ordered. FINAL DIAGNOSES 1. Dysthymic disorder. 2. Cocaine use disorder. 3. Rule out malingering. DISPOSITION ON DISCHARGE The patient is discharged on the following medications: 1. Citalopram 20 mg daily for depression. 2. No dietary or physical restrictions were placed upon this patient at the time of discharge and will take place in the auspices of community mental health resources and chemical dependent resources. PROGNOSIS Considered fair. Dictated by... Deny Nick M.D. CB/mary grace TD: 10/12/2016 09:31 JOB #: [id number] Unit #: [id number] #: [id number] Patient: PAUL SHI DISCHARGE SUMMARY Page 1 of 1 X Deny Nick MD X DISCHARGE SUMMARY
--- NOTE | ~2016-10-05 | PA ---
Unit #: [id number] #: [id number] Patient: PAUL SHI [id number] [facility] [address] [place] [address] [id number] I MR#: [id number] NAME: PAUL SHI ROOM: P256 Age: 36 Sex: M Admission Date: 10/05/2016 : 1980 Date of Assessment: 10/06/2016 Attending Physician: Deny Nick M.D. Admitting Physician: Deny Nick M.D. Primary Care Physician: Maldonado Cruz M.D. PSYCHIATRIC ASSESSMENT IDENTIFYING INFORMATION The patient is a 36-year-old single male, admitted to the [address] [place] [address] unit, after presenting to this facility claiming to be suicidal. INFORMANT(S) Patient and chart, reliability fair. CHIEF COMPLAINT None given. HISTORY OF PRESENT ILLNESS This is the third admission in approximately four weeks for this aotplz-sywu-utxb-old male, who presents complaining of positive depressed mood and suicidal ideation. At the time of his last discharge from this facility, the patient was provided with prescription for mirtazapine but sites financial reasons for not having been able to fill the medication. He does have a history of cocaine dependence but reports that he has not used for some time. During his last hospitalization, the patient complained for boredom at home as well as lack of food at home and continues to report these as issues. The patient states that he has been neglecting ALDs, and states that he does not wish to live any longer. He reports thoughts of shooting himself with a pellet gun or overdosing on medication for suicide plans, for more complete history of present illness please refer to previously dictated notes. PAST PSYCHIATRIC HISTORY Reviewed and no changes. PAST MEDICAL HISTORY Reviewed and no changes. MEDICATIONS The patient is on no prescribed medications at this time. ALLERGIES None. FAMILY HISTORY Reviewed and no changes. SOCIAL HISTORY Unit #: [id number] #: [id number] Patient: PAUL SHI Reviewed and no changes. MENTAL STATUS EXAMINATION At this time, reveals the patient to be a well-developed, well-nourished male, appearing his stated age. He is in no apparent physical distress at the time of the examination. He is awake, alert, and oriented in all spheres. His mood is mildly dysphoric and a tad irritable. His affect blunted. Speech is generally relevant and coherent. There are no gross deficits to memory or cognition noted. Intelligence is judged to be in the average range based on fund of knowledge. The patient is less than optimally cooperative throughout the interview. He continues to endorse positive suicidal ideation. He denies homicidal ideation. He denies any psychotic symptoms. His judgment and insight appear to be reasonably intact. No signs of substance withdrawal are noted. The patient is noted to be purposefully vague when answering questions regarding mood, goals, treatment, et cetera. ASSETS To be assessed. LIABILITIES Lack of investment in treatment. DIAGNOSTIC IMPRESSION [place] I: Dysthymic disorder. Rule out malingering. Cocaine use disorder. TREATMENT PLAN The patient remains hospitalized for safety and stabilization, I will go ahead and discontinue the Remeron given the patient's complaints about the cost of this medication and will instead begin citalopram 20 mg daily a medication which should be more readily available at a lower kim, it remains my contention that the patient's main reason for being here; however, is probably his lack of resources at home. This having been evidenced by his total lack of investment in the therapeutic treatment milieu during previous hospitalizations. To encourage the patient to participate I have informed him that should he miss a single group that we will go ahead and institute a room lockout policy to encourage full participation and insure the patient's safety. ESTIMATED LENGTH OF STAY IN THE HOSPITAL Yslzg-fk-zofm days. Dictated by... Deny Nick M.D. CB/gumaro TD: 10/06/2016 13:13 JOB #: [id number] Unit #: [id number] #: [id number] Patient: PAUL SHI PSYCHIATRIC ASSESSMENT Page 1 of 1 X Deny Nick MD X PSYCHIATRIC ASSESSMENT
--- NOTE | ~2016-10-05 | HP ---
Unit #: [id number] #: [id number] Patient: BRODERICK SHI [id number] [place] [address] [id number] MR#: [id number] NAME: BRODERICK SHI ROOM: P256 Age: 36 Sex: M Admission Date: 10/05/2016 : 1980 Attending Physician: Deny Nick M.D. Admitting Physician: Deny Nick M.D. Primary Care Physician: Maldonado Cruz M.D. HISTORY AND PHYSICAL HISTORY OF PRESENT ILLNESS Broderick is a 36 year old admitted to [address] [place] [address] with depression and verbalizing wanting to hurt himself. He has had numerous admissions to this facility over the past few months for the same. PAST MEDICAL HISTORY Nothing reported. PAST SURGICAL HISTORY Cranial surgery. ALLERGIES No known drug allergies. SOCIAL HISTORY He smokes one pack per day. Denies alcohol and illicit drug use. FAMILY HISTORY Medically noncontributory. REVIEW OF SYSTEMS CONSTITUTIONAL: No fever or chills. HEENT: Denies any sore throat, ear pain or runny nose. CARDIOVASCULAR: Denies chest pain, irregular heart rhythm or palpitations. CHEST: Denies shortness of breath or cough. No hemoptysis. GASTROINTESTINAL: Denies nausea, vomiting, diarrhea or chronic constipation. ENDOCRINE: Denies history of increased thirst or urination. No recent significant weight loss or gain. GENITOURINARY: Denies dysuria, frequency, or hematuria. SKIN: Denies any rashes. HEMATOLOGIC: Denies history of increased bleeding or bruising. MUSCULOSKELETAL: Denies any hot, swollen joints. No generalized muscle pain. NEUROLOGIC: Denies problems with vision or speech. No frequent, severe headaches. No numbness, tingling or weakness in any extremities. Denies loss of bladder or bowel control. CURRENT MEDICATIONS 1. Remeron 15 mg q.h.s. 2. Milk of Magnesia p.r.n. 3. Maalox p.r.n. Unit #: [id number] #: [id number] Patient: BRODERICK SHI PHYSICAL EXAMINATION GENERAL: Alert, well-nourished, in no apparent distress. VITAL SIGNS: Blood pressure 124/78, heart rate 80, respirations 16, temperature 98.6. WEIGHT: 150 pounds. HEIGHT: 5'6". SKIN: Warm and dry without rash or lesion. HEENT: Normocephalic. TMs not viewed. Oral and nasal passages clear. Conjunctivae clear. Pupils equal, round and reactive to light and accommodation. Extraocular movements intact. NECK: Supple without lymphadenopathy or thyromegaly. HEART: Regular rate and rhythm without murmur. LUNGS: Clear. ABDOMEN: Soft, nontender. : Not done. EXTREMITIES: No evidence of cyanosis, clubbing or edema. Moves all extremities without focal deficit. NEUROLOGICAL: Grossly within normal limits. Cranial Nerves: II: Visual munoz are intact. III, IV AND : Extraocular movements are intact. Pupils are equal, round and reactive to light. V: Facial sensation is grossly normal. VII: Facial movements and expression are normal. VIII: Auditory acuity grossly intact. IX, X: Uvula is midline. Phonation is normal. XI: Patient shrugs shoulders and turns head normally. XII: Tongue protrudes in the midline. Sensory and Motor Function: Sensory and motor sensation is grossly normal. Motor: moves all extremities well. Coordination: Gait is normal. Deep Tendon Reflexes: Intact. IMPRESSION Psychiatric admission RECOMMENDATIONS PSYCHIATRIC: Per psychiatrist. MEDICAL: I see no contraindications to participating in facility's activities. MEDICAL PROGNOSIS Good. MEDICAL CONDITION Stable. Dictated by... Dayna Avila P.A.-C. for Marcos Pardo/jody TD: 10/05/2016 22:40 JOB #: [id number] Unit #: [id number] #: [id number] Patient: BRODERICK SHI HISTORY AND PHYSICAL Page 1 of 1 X Dayna Avila HISTORY AND PHYSICAL
[2016-10-06 10:07] LABS: AMPHETAMINE NEG (NEG); BARBITURATES NEG (NEG); BENZODIAZEPINES NEG (NEG); COCAINE NEG (NEG); MARIJUANA NEG (NEG); OPIATES NEG (NEG); TRICYCLIC ANTIDEPRESSANTS NEG (NEG); U METHADONE NEG (NEG)
== END 2016-10-09 16:45 | disposition home or self-care (01) | DRG 881 ==
LOC: P2L 14:21 → POF 14:21 → P2L 15:40
PROVIDERS: Specialist
DX: F34.1 Dysthymic disorder (principal); F14.10 Cocaine abuse, uncomplicated; R51 Headache
CPT/HCPCS: 80307

== ENCOUNTER 2016-10-24 11:00 | Inpatient (IN) | payer OTHER ==
[~2016-10-24] VITALS: Ht 167.6 cm; Wt 69.9 kg
--- NOTE | ~2016-10-24 | HP ---
Unit #: [id number] #: [id number] Patient: PAUL SHI [id number] [facility] [address] [place] [address] [id number] MR#: [id number] NAME: PAUL SHI ROOM: P212 Age: 36 Sex: M Admission Date: 10/24/2016 : 1980 Attending Physician: Deny Nick M.D. Admitting Physician: Deny Nick M.D. Primary Care Physician: Maldonado Cruz M.D. HISTORY AND PHYSICAL The patient is a 36-year-old male admitted to [address] [place] [address] on 10/24/2016 for suicidal ideations. Patient had a recent admission on 10/05/2016 where a full history and physical was completed. That history and physical has been reviewed. No changes need to be made. Dictated by... Ulises Curtis/jody TD: 10/26/2016 01:10 JOB #: [id number] HISTORY AND PHYSICAL Page 1 of 1 X KYA MARTINEZ APRN X HISTORY AND PHYSICAL
--- NOTE | ~2016-10-24 | PA ---
Unit #: [id number] #: [id number] Patient: PAUL SHI [id number] [facility] [address] [place] [address] [id number] I MR#: [id number] NAME: PAUL SHI ROOM: P212 Age: 36 Sex: M Admission Date: 10/24/2016 : 1980 Date of Assessment: 10/25/2016 Attending Physician: Deny Nick M.D. Admitting Physician: Deny Nick M.D. Primary Care Physician: Maldonado Cruz M.D. PSYCHIATRIC ASSESSMENT IDENTIFYING INFORMATION The patient is a 36-year-old male readmitted to the [address] [place] [address] unit after he presented to this facility claiming to be suicidal. CHIEF COMPLAINT None given. INFORMANT(S) Patient and chart, reliability fair. HISTORY OF PRESENT ILLNESS The patient is a 36-year-old white male well-known to this physician from three previous admissions the last for which ended on 10/09/2016. The patient has in the past admitted to this physician that he has come to this facility out of "boredom" or "lack of food at home." The patient had presented yesterday claiming to be suicidal with the plan to shoot himself with a pellet gun or overdose on medications. When discharged from this facility on 10/09 the patient was given a prescription for citalopram which he refused to fill claiming to be unable to afford the medication despite it meager cost. The patient continues to endorse positive suicidal ideation when seen today. He is today firmly comforted regarding his failure to attend an on unit therapeutic activity. He tends to remain in his room with little participation within the therapeutic milieu during his stays in the hospital and there has very strong suspicion on the part of this physician that the patient comes to this facility when resources at home have necessitated that he is out of food and a need of lodging. The patient does have a history of cocaine abuse but denies recent abuse of any substances. For more complete history of present illness, please refer to previously dictated notes. PAST PSYCHIATRIC HISTORY Reviewed, no changes. PAST MEDICAL HISTORY Reviewed, no changes. MEDICATIONS None. ALLERGIES None. FAMILY HISTORY Unit #: [id number] #: [id number] Patient: PAUL SHI Reviewed, no changes. SOCIAL HISTORY Reviewed, no changes. MENTAL STATUS EXAMINATION Examination at this time reveals the patient to be a well-developed well-nourished male appearing his stated age. He is in no apparent physical distress at the time of examination. He is awake, alert, and oriented in all spheres. His mood is euthymic. His affect constricted. Speech is generally well-coherent. There are no gross deficits in memory or cognition noted. Intelligence is judged to be in the average range based on fund of knowledge. The patient is generally cooperative during interview. He is currently endorsing positive suicidal ideation. He denies homicidal ideation. He denies any psychotic symptoms. His judgement and insight appear to be at baseline. ASSETS AND LIABILITIES ASSETS: To be assessed. LIABILITIES: Lack of resources, malingering. DIAGNOSTIC IMPRESSION 1. Dysthymic disorder 2. Cocaine use disorder. 3. Malingering. TREATMENT PLAN The patient will remain hospitalized for safety and stabilization. At this point given the patient's pointed refusal to comply with any medications outside of the hospital I will not initiate any psychotropic or other medications and have gently but firmly confronted the patient today regarding my feeling that he is probably here secondary to malingering. He continues to endorse positive suicidal ideations, suicide precautions will remain in place. ESTIMATED LENGTH OF STAY 3 to 4 days. Dictated by... Deny Nick M.D. NADEGE/jody TD: 10/25/2016 21:31 JOB #: [id number] Unit #: [id number] #: [id number] Patient: PAUL SHI PSYCHIATRIC ASSESSMENT Page 1 of 1 X Deny Nick MD X PSYCHIATRIC ASSESSMENT
--- NOTE | ~2016-10-24 | DS ---
Unit #: [id number] #: [id number] Patient: PAUL SHI [id number] [facility] [address] [place] [address] [id number] I MR#: [id number] NAME: PAUL SHI ROOM: P212 Age: 36 Sex: M Admission Date: 10/24/2016 : 1980 Discharge Date: 10/26/2016 Attending Physician: Deny Nick M.D. Primary Care Physician: Maldonado Cruz M.D. DISCHARGE SUMMARY REASON FOR ADMISSION The patient is a 36-year-old male, admitted to the [address] [place] [address] unit after he had presented to this facility claiming to be suicidal. HOSPITAL COURSE The patient was admitted to the [address] [place] [address] unit and placed on suicide precautions because this physician had learned that the patient had failed to fill his prescription for citalopram. No medications were ordered as the patient had previously been noncompliant with prescribed mirtazapine following a previous hospitalization. The patient voiced no suicidal ideation on 10/26/2016 and requested discharge, it was so ordered. FINAL DIAGNOSES Dysthymic disorder, malingering. DISPOSITION ON DISCHARGE No medications were prescribed at the time of discharge. FOLLOWUP Followup will take place through the auspices of community mental health and chemical dependency treatment resources. PROGNOSIS The patient's prognosis remains guarded. Dictated by... Deny Nick M.D. CB/belkisl TD: 10/27/2016 03:22 JOB #: [id number] Unit #: [id number] #: [id number] Patient: PAUL SHI DISCHARGE SUMMARY Page 1 of 1 X Deny Nick MD X DISCHARGE SUMMARY
[2016-10-25 13:14] LABS: AMPHETAMINE NEG (NEG); BARBITURATES NEG (NEG); BENZODIAZEPINES NEG (NEG); COCAINE POS (NEG); MARIJUANA NEG (NEG); OPIATES NEG (NEG); TRICYCLIC ANTIDEPRESSANTS NEG (NEG); U METHADONE NEG (NEG)
== END 2016-10-26 14:19 | DRG 881 ==
LOC: P2S 12:57
PROVIDERS: Specialist
DX: F34.1 Dysthymic disorder (principal); R45.851 Suicidal ideations; F14.10 Cocaine abuse, uncomplicated; Z76.5 Malingerer [conscious simulation]
CPT/HCPCS: 80307

== ENCOUNTER 2016-10-30 08:00 | Inpatient (IN) | payer OTHER ==
[~2016-10-30] VITALS: Ht 167.6 cm; Wt 69.9 kg
--- NOTE | ~2016-10-30 | PA ---
Unit #: [id number] #: [id number] Patient: PAUL SHI JR [id number] [facility] [address] [place] [address] [id number] I MR#: [id number] NAME: PAUL SHI JR ROOM: P131 Age: 36 Sex: M Admission Date: 10/30/2016 : 1980 Date of Assessment: 10/30/2016 Attending Physician: Deny Nick M.D. Admitting Physician: Deny Nick M.D. Primary Care Physician: Maldonado Cruz M.D. PSYCHIATRIC ASSESSMENT IDENTIFYING INFORMATION The patient is a 36-year-old male brought to this facility by the crisis intervention team claiming to be suicidal. INFORMANT(S) Patient and chart. RELIABILITY Fair. CHIEF COMPLAINT "I need to work some things out." HISTORY OF PRESENT ILLNESS The patient is a 36-year-old male just discharged from this facility on 10/26/2016. He returns to the hospital today after summoning the crisis intervention team to his home claiming to be suicidal with plans "drink so much water I'll have a seizure" or using a pellet gun to "shoot himself in the heart." The patient has a history of previous treatment at this facility on at least 3 recent occasions all under similar circumstances with the patient providing vague treatment goals etc. It has been strongly suspected that the patient is here secondary to malingering as he has on occasion admitted that he has come "out of boredom" or when he "runs out of food." The patient admits to a recent relapse of cocaine use. He did not fill the prescription for citalopram provided at the time of last discharge. For a more complete history of present illness, please refer to previous dictated notes. PAST PSYCHIATRIC HISTORY Reviewed, no changes. FAMILY HISTORY/SOCIAL HISTORY Reviewed, no changes. MEDICAL HISTORY Reviewed, no changes. MEDICATION HISTORY None. ALLERGIES None reported. Unit #: [id number] #: [id number] Patient: PAUL SHI JR MENTAL STATUS EXAM At this time, reveals the patient to be a well-developed, well-nourished male appearing his stated age. He is in no apparent physical distress at the time of the examination. He is awake, alert, oriented in all spheres. His mood is euthymic. His affect blunted and strange. Speech is purposely tangential and evasive. There are no gross deficits in memory or cognition noted. Intelligence is judged to be in the average range based on fund of knowledge. The patient is generally cooperative during interview. He continues to endorse positive suicidal ideation during today's interview. He denies homicidal ideation. He denies any psychotic symptoms. His judgement and insight appear to be reasonably intact. No signs of substance withdrawal are noted. ASSETS AND LIABILITIES Patient's assets to be assessed. Liabilities, ongoing malingering. ADMITTING DIAGNOSES 1. Dysthymic disorder. 2. Cocaine use disorder. 3. Mood disorder, unspecified. 4. Malingering. PSYCHIATRIC PLAN/TREATMENT GOALS The patient remains hospitalized for safety and stabilization. I have no intention of initiating any psychotropic medication given the patient's refusal to fill medications outside the hospital and my belief that he is in the hospital secondary to malingering. To assure the patient's safety, he will be placed on room lockout precautions from 6 a.m. to 10 p.m. ESTIMATED LENGTH OF STAY Three to five days. Dictated by... Deny Nick M.D. NADEGE/rajesh TD: 10/30/2016 15:03 JOB #: [id number] PSYCHIATRIC ASSESSMENT Page 1 of 1 X Deny Nick MD X PSYCHIATRIC ASSESSMENT
--- NOTE | ~2016-10-30 | PN ---
Unit #: [id number] #: [id number] Patient: PAUL SHI JR [id number] [facility] [address] [place] [address] [id number] MR#: [id number] NAME: PAUL SHI JR ROOM: [facility]6 Age: 36 Sex: M Admission Date: 10/30/2016 : 1980 Attending Physician: Deny Nick M.D. Admitting Physician: Deny Nick M.D. Primary Care Physician: Marcos Lockhart PROGRESS NOTES DATE 11/01/2016 DISCUSSION The patient was briefly put on one to one precautions last evening after claiming to be acutely suicidal. When this physician queries the patient regarding this today he states that he "just got a feeling in my head" not really reporting any positive suicidal ideation. He remains frustratingly vague and evasive during questioning and I continue to suspect that there is a strong degree of malingering present in the patient's complaints and presentation. Dictated by... Deny Nick M.D. CB/jody TD: 11/02/2016 00:32 JOB #: [id number] [facility] PROGRESS NOTES Page 1 of 1 X Deny Nick MD X PROGRESS NOTE
--- NOTE | ~2016-10-30 | DS ---
Unit #: [id number] #: [id number] Patient: PAUL SHI [id number] [facility] [address] [place] [address] [id number] I MR#: [id number] NAME: PAUL SHI ROOM: [facility] Age: 36 Sex: M Admission Date: 10/30/2016 : 1980 Discharge Date: 11/03/2016 Attending Physician: Deny Nick M.D. Primary Care Physician: Maldonado Cruz M.D. DISCHARGE SUMMARY REASON FOR ADMISSION The patient is a 36-year-old male, admitted to the [address] [place] [address] unit [address] claiming to be suicidal. HOSPITAL COURSE The patient was admitted to the [address] [place] [address] unit and placed on room lockout precautions. No medications were initiated given the patient's history of failure to fill prescriptions for prescribed medications. Once again, the patient reported that he was "just bored" and had to his home. By 11/03/2016, the patient denied suicidal ideation. He was noted to be jovially interacting with peers, playing cards with other patients, and discharge was ordered. FINAL DIAGNOSES Dysthymic disorder, malingering. DISPOSITION ON DISCHARGE The patient is discharged on no psychotropic or other medications. FOLLOWUP Followup will take place through the auspices of community mental health resources. PROGNOSIS His prognosis is considered guarded. Dictated by... Deny Nick M.D. CB/belkisl TD: 11/03/2016 16:07 JOB #: [id number] Unit #: [id number] #: [id number] Patient: PAUL SHI DISCHARGE SUMMARY Page 1 of 1 X Deny Nick MD X DISCHARGE SUMMARY
--- NOTE | ~2016-10-30 | PN ---
Unit #: [id number] #: [id number] Patient: PAUL SHI JR [id number] [facility] [address] [place] [address] [id number] I MR#: [id number] NAME: PAUL SHI JR ROOM: [facility]6 Age: 36 Sex: M Admission Date: 10/30/2016 : 1980 Attending Physician: Deny Nick M.D. Admitting Physician: Deny Nick M.D. Primary Care Physician: Marcos Lockhart PROGRESS NOTES DATE 11/02/2016 DISCUSSION The patient remains on room lock out precautions but is denying suicidal ideation. I have told him to expect a.m. discharge. Dictated by... Deny Nick M.D. CB/jody TD: 11/02/2016 22:03 JOB #: [id number] [facility] PROGRESS NOTES Page 1 of 1 X Deny Nick MD X PROGRESS NOTE
--- NOTE | ~2016-10-30 | PN ---
Unit #: [id number] #: [id number] Patient: PAUL SHI JR [id number] [facility] [address] [place] [address] [id number] I MR#: [id number] NAME: PAUL SHI JR ROOM: P131 Age: 36 Sex: M Admission Date: 10/30/2016 : 1980 Attending Physician: Deny Nick M.D. Admitting Physician: Deny Nick M.D. Primary Care Physician: Marcos Lockhart PROGRESS NOTES DATE 10/31/2016 DISCUSSION The patient admits to this physician today [id number] as he has in the past that he "gets bored" and calls the police to his home to bring him to this facility. I have suggested that the patient look for a more constructive way to fill his time rather than summoning police to his home when he feels as though he is less than adequately entertained. In the meantime, he remains on room lockout precautions, and I have no intention of initiating pharmacotherapy (1) because I did not feel as though the patient is actually suffering from a true depressive illness, and (2) because the patient has exhibited no intention of complying with these medications or therapies outside the hospital. Dictated by... Deny Nick M.D. NADEGE/evelyne TD: 10/31/2016 12:51 JOB #: [id number] [facility] PROGRESS NOTES Page 1 of 1 X Deny Nick MD X PROGRESS NOTE
--- NOTE | ~2016-10-30 | HP ---
Unit #: [id number] #: [id number] Patient: BRODERICK SHI JR [id number] [facility] [address] [place] [address] [id number] I MR#: [id number] NAME: BRODERICK SHI JR ROOM: P131 Age: 36 Sex: M Admission Date: 10/30/2016 : 1980 Attending Physician: Deny Nick M.D. Admitting Physician: Deny Nick M.D. Primary Care Physician: Maldonado Cruz M.D. HISTORY AND PHYSICAL Broderick is a 36 year old admitted to [address] [place] [address] with depression and verbalizing wanting to hurt himself. He has had numerous admissions to this facility for the same. Patient was seen and H and P dated 10/05/16 was reviewed. This is current. No changes. Please see H and P dated 10/05/16. Dictated by... Dayna Avila P.A.-C. for Marcos Pardo/rajesh TD: 10/30/2016 19:00 JOB #: [id number] HISTORY AND PHYSICAL Page 1 of 1 X Dayna Avila HISTORY AND PHYSICAL
[2016-10-31 11:45] LABS: BASOPHIL% 1.1 % (0-2.5); EOSINOPHIL# 0.2 X10e3 (0-0.7); EOSINOPHIL% 5.9 % (0.0-7.0); HEMATOCRIT 39.9 % (38.0-50.0); HEMOGLOBIN 13.5 gm/dL (13.0-16.0); LYMPHOCYTE# 1.4 X10e3 (1.0-3.5); LYMPHOCYTE% 34.5 % (17.0-45.0); MEAN CELL VOLUME 89.1 FL (83-96); MEAN CORPUSCULAR HGB CONC 33.7 g/dL (30-36); MONOCYTE# 0.4 X10e3 (0-1.0); NEUTROPHIL# 1.9 X10e3 (1.5-7.1); NEUTROPHIL% 47.5 % (40-75); PLATELET COUNT 211 X10e3 (140-420); RED BLOOD COUNT 4.49 X10e (3.90-5.60); RED CELL DISTRIBUTION WIDTH 13.9 % (11.0-15.5); WHITE BLOOD COUNT 3.9 X10e3 (4.0-10.5)
[2016-10-31 11:48] LABS: DIFF IND NO
[2016-10-31 12:04] LABS: ALBUMIN SERUM 3.7 g/dL (3.5-5.0); BILIRUBIN,TOTAL 1.3 mg/dL (0.2-2.0); CALCIUM SERUM 9.4 mg/dL (8.4-10.2); GLOM FILT RATE Estimated 112.5 mL/min (>60); POTASSIUM 4.5 mmol/L (3.5-5.1); PROTEIN TOTAL SERUM 6.7 g/dL (6.0-8.3)
== END 2016-11-03 17:27 | disposition home or self-care (01) | DRG 881 ==
LOC: POF 10:28 → P1S 10:28
PROVIDERS: Specialist
DX: F34.1 Dysthymic disorder (principal); F15.20 Other stimulant dependence, uncomplicated; F39 Unspecified mood [affective] disorder; Z76.5 Malingerer [conscious simulation]; F17.210 Nicotine dependence, cigarettes, uncomplicated
CPT/HCPCS: 80053; 85025

== ENCOUNTER 2016-11-04 15:00 | Inpatient (IN) | payer OTHER ==
[~2016-11-04] VITALS: Ht 170.2 cm; Wt 66.7 kg
--- NOTE | ~2016-11-04 | HP ---
Unit #: [id number] #: [id number] Patient: BRODERICK SHI [id number] [facility] [address] [place] [address] [id number] MR#: [id number] NAME: BRODERICK SHI ROOM: P121 Age: 36 Sex: M Admission Date: 11/04/2016 : 1980 Attending Physician: Deny Nick M.D. Admitting Physician: Deny Nick M.D. Primary Care Physician: Maldonado Cruz M.D. HISTORY AND PHYSICAL Broderick is a 36 year old admitted to [address] [place] [address] with depression and verbalizing wanting to hurt himself. He was just discharged from this facility after treatment for the same. Patient was seen and H and P dated 10/05/16 was reviewed. This is current. No changes. Please see H and P dated 10/05/16. Dictated by... Dayna Avila P.A.-C. for Marcos Pardo/rajesh TD: 11/05/2016 15:09 JOB #: [id number] HISTORY AND PHYSICAL Page 1 of 1 X Dayna Avila HISTORY AND PHYSICAL
--- NOTE | ~2016-11-04 | PA ---
Unit #: [id number] #: [id number] Patient: PAUL SHI [id number] [facility] [address] [place] [address] [id number] I MR#: [id number] NAME: PAUL SHI ROOM: P121 Age: 36 Sex: M Admission Date: 11/04/2016 : 1980 Date of Assessment: 11/05/2016 Attending Physician: Deny Nick M.D. Admitting Physician: Deny Nick M.D. Primary Care Physician: Maldonado Cruz M.D. PSYCHIATRIC ASSESSMENT IDENTIFYING INFORMATION The patient is a 36-year-old male just discharged from this facility on 11/03/2016. He had returned claiming to be suicidal. CHIEF COMPLAINT "I couldn't go outside." INFORMANT(S) Patient and chart, reliability poor. HISTORY OF PRESENT ILLNESS The patient is a 36-year-old male just discharged from this facility on 11/03/2016. He returned to this facility after having been brought by police claiming that he "could not go outside and voicing suicidal ideation." When seen today, the patient denied suicidal ideation and gives a vague statement of "not being able to go outside." The patient has admitted to this physician in the past that he has come to this facility when he runs out of food or "gets bored." He has repeatedly refused to comply with prescribed outpatient followup or medications. He has a history of cocaine abuse but denies recent abuse of any psychoactive substances. For more complete history of present illness, please refer to previously dictated notes. PAST PSYCHIATRIC HISTORY Reviewed, no changes. PAST MEDICAL HISTORY Reviewed, no changes. MEDICATIONS None. ALLERGIES None. FAMILY HISTORY Reviewed, no changes. SOCIAL HISTORY Reviewed, no changes. MENTAL STATUS EXAMINATION Examination at this time reveals the patient to be a well-developed Unit #: [id number] #: [id number] Patient: PAUL SHI well-nourished heavily tattooed male appearing his stated age. He is dressed in hospital garb. He is awake, alert, and oriented in all spheres. His mood is euthymic, his affect blunted and strange. Speech is purposely evasive. There are no gross deficits in memory or cognition noted. Intelligence is judged to be in the average range based on fund of knowledge. The patient is less than optimally cooperative throughout the interview. He denies current suicidal or homicidal ideation or psychotic features. Judgment and insight appear to be reasonably intact. ASSETS AND LIABILITIES The patient's assets are to be assessed. Liabilities: Lack of resources. DIAGNOSTIC IMPRESSION 1. Cocaine use disorder. 2. Malingering. TREATMENT PLAN The patient will be discharged from the hospital today and has sternly warned regarding his misuse of hospital resources as well as resources of police and local authorities. Dictated by... Deny Nick M.D. Lian TD: 11/05/2016 14:35 JOB #: [id number] PSYCHIATRIC ASSESSMENT Page 1 of 1 X Deny Nick MD X PSYCHIATRIC ASSESSMENT
--- NOTE | ~2016-11-04 | DS ---
Unit #: [id number] #: [id number] Patient: PAUL SHI [id number] [facility] [address] [place] [address] [id number] I MR#: [id number] NAME: PAUL SHI ROOM: P121 Age: 36 Sex: M Admission Date: 11/04/2016 : 1980 Discharge Date: 11/05/2016 Attending Physician: Deny Nick M.D. Primary Care Physician: Maldonado Cruz M.D. DISCHARGE SUMMARY REASON FOR ADMISSION The patient is a 36-year-old male admitted after he had presented to this facility once again making vague suicidal threats. HOSPITAL COURSE The patient was admitted to the [address] [place] [address] Unit and placed on room lockout precautions. He was seen by this physician on the afternoon of 11/05/2016 and at that time continued to make evasive statements regarding his situation at home, but denied suicidal ideation. He was firmly confronted regarding his failure to comply with treatment as well as his ongoing abuse of the hospital system this having represented his fourth or fifth hospitalization in the past 3 to 4 weeks. Discharge was ordered. FINAL DIAGNOSES 1. Cocaine use disorder. 2. Malingering. DISPOSITION ON DISCHARGE No psychotropic or other medications are ordered at the time of discharge. FOLLOWUP Followup will take place through the auspices of community mental health resources. PROGNOSIS Remains somewhat guarded. Dictated by... Deny Nick M.D. NADEGE/evelyne TD: 11/06/2016 07:07 JOB #: [id number] Unit #: [id number] #: [id number] Patient: PAUL SHI DISCHARGE SUMMARY Page 1 of 1 X Deny Nick MD X DISCHARGE SUMMARY
== END 2016-11-05 15:21 | disposition home or self-care (01) | DRG 897 ==
LOC: P1S 17:42
DX: F14.10 Cocaine abuse, uncomplicated (principal); F17.200 Nicotine dependence, unspecified, uncomplicated; Z76.5 Malingerer [conscious simulation]

== ENCOUNTER 2016-11-07 05:00 | Inpatient (IN) | payer OTHER ==
[~2016-11-07] VITALS: Ht 175.3 cm; Wt 70.8 kg
--- NOTE | ~2016-11-07 | HP ---
Unit #: [id number] #: [id number] Patient: PAUL SHI [id number] [facility] [address] [place] [address] [id number] I MR#: [id number] NAME: PAUL SHI ROOM: P131 Age: 36 Sex: M Admission Date: 11/07/2016 : 1980 Attending Physician: Deny Nick M.D. Admitting Physician: Deny Nick M.D. Primary Care Physician: Maldonado Cruz M.D. HISTORY AND PHYSICAL NOTE The patient is a 36-year-old male admitted to [address] [place] [address] on 11/07/2016 for suicidal ideation. The patient was admitted and discharged prior to 24 hours. He was gone prior to H and P being completed. Dictated by... Ulises Curtisbzg TD: 11/10/2016 07:30 JOB #: [id number] HISTORY AND PHYSICAL Page 1 of X KYA MARTINEZ APRN HISTORY AND PHYSICAL
--- NOTE | ~2016-11-07 | PA ---
Unit #: [id number] #: [id number] Patient: PAUL SHI [id number] [facility] [address] [place] [address] [id number] I MR#: [id number] NAME: PAUL SHI ROOM: P131 Age: 36 Sex: M Admission Date: 11/07/2016 : 1980 Date of Assessment: 11/07/2016 Attending Physician: Deny Nick M.D. Admitting Physician: Deny Nick M.D. Primary Care Physician: Maldonado Cruz M.D. PSYCHIATRIC ASSESSMENT IDENTIFYING INFORMATION HISTORY OF PRESENT ILLNESS The patient is a 36-year-old male just discharged from this facility 1 day previous to his readmission to the hospital. The patient was once again brought to this facility by police after he had claimed to be suicidal. The needs assessment indicates that the patient is angry because "no one will cook for him." He has admitted in the past that he has come to this facility secondary to lack of food in the home or feelings of boredom. The patient is currently denying any suicidal ideation. He has been consistently unwilling to comply with prescribed followup or medications and has been consistently vague in his interactions with this physician. When seen today, the patient is now reporting suicidal ideations. It remains the feeling of this physician that the patient is malingering secondary to lack of resources in his home, particularly food. For more complete history of present illness, please refer to previously dictated notes. PAST PSYCHIATRIC HISTORY Reviewed, no changes. PAST MEDICAL HISTORY Reviewed, no changes. MEDICATIONS None. ALLERGIES None. FAMILY HISTORY Reviewed, no changes. SOCIAL HISTORY Reviewed, no changes. MENTAL STATUS EXAMINATION Examination at this time reveals the patient to be a well-developed well-nourished male appearing stated age. He is in no apparent physical distress at the time of examination. He is awake, alert, and oriented in all spheres. His mood is mildly dysphoric, his affect congruent. Speech is generally well coherent. There are no gross deficits in memory or cognition noted. Intelligence is judged to be in Unit #: [id number] #: [id number] Patient: PAUL SHI the low average range based on fund of knowledge. The patient is generally cooperative throughout the interview. He is currently denying suicidal or homicidal ideation or psychotic features. His judgment and insight appear to be reasonably intact. ASSETS AND LIABILITIES The patient's assets are to be assessed. Liabilities: Ongoing malingering. Lack of resources. DIAGNOSTIC IMPRESSION Cocaine use disorder, malingering. TREATMENT PLAN The patient will be discharged immediately. He is sternly confronted today regarding his frequent readmissions to this facility including at least 3 to 4 admissions in the last 7 days under similar circumstances. The patient clearly has made absolutely no effort to participate within the therapeutic milieu, comply with medications, or do anything other than sleep and eat when in the hospital. Discharge is ordered. Dictated by... Deny Nick M.D. Lian TD: 11/07/2016 12:59 JOB #: [id number] PSYCHIATRIC ASSESSMENT Page 1 of 1 X Deny Nick MD X PSYCHIATRIC ASSESSMENT
--- NOTE | ~2016-11-07 | DS ---
Unit #: [id number] #: [id number] Patient: PAUL SHI [id number] [facility] [address] [place] [address] [id number] MR#: [id number] NAME: PAUL SHI ROOM: P131 Age: 36 Sex: M Admission Date: 11/07/2016 : 1980 Discharge Date: 11/07/2016 Attending Physician: Deny Nick M.D. Primary Care Physician: Maldonado Cruz M.D. DISCHARGE SUMMARY REASON FOR ADMISSION The patient is a 36-year-old male admitted to the [facility] after he had been brought to this facility claiming to be suicidal. HOSPITAL COURSE The patient was briefly admitted to the [facility]. He was seen by this physician shortly after arrival on the unit, and at that point denied suicidal ideation, admitting once again that he was upset that there was no food in the home or that "no one would cook for him." He has made the same complaint in the past and has been firmly confronted regarding his misuse of hospital and police resources. With his denial of suicidal ideation, it was clear that he did not meet criteria for ongoing hospitalization, and discharge was ordered. FINAL DIAGNOSES 1. Cocaine use disorder. 2. Malingering. DISPOSITION ON DISCHARGE No psychotropic or other medications were ordered at the time of discharge. FOLLOWUP Followup will take place through the auspices of community mental health resources. Dictated by... Deny Nick M.D. CB/evelyne TD: 11/11/2016 06:48 JOB #: [id number] Unit #: [id number] #: [id number] Patient: PAUL SHI DISCHARGE SUMMARY Page 1 of 1 X Deny Nick MD X DISCHARGE SUMMARY
== END 2016-11-07 13:00 | disposition home or self-care (01) | DRG 897 ==
LOC: P1S 09:47
DX: F14.10 Cocaine abuse, uncomplicated (principal); R45.851 Suicidal ideations; Z76.5 Malingerer [conscious simulation]

== ENCOUNTER 2016-11-17 04:00 | Inpatient (IN) | payer OTHER ==
[~2016-11-17] VITALS: Ht 175.3 cm; Wt 69.4 kg
--- NOTE | ~2016-11-17 | DS ---
Unit #: [id number] #: [id number] Patient: PAUL SHI [id number] [facility] [address] [place] [address] [id number] MR#: [id number] NAME: PAUL SHI ROOM: [facility] Age: 36 Sex: M Admission Date: 11/17/2016 : 1980 Discharge Date: 11/17/2016 Attending Physician: Deny Nick M.D. Primary Care Physician: Generic Doctor Not In System DISCHARGE SUMMARY REASON FOR ADMISSION The patient is a 36-year-old male with a documented history of malingering, admitted after he had presented to [facility] claiming to be having suicidal ideation. HOSPITAL COURSE The patient was briefly admitted to the [facility] Unit. He was seen by this physician on 11/17/2016, and at that time. The patient denied suicidal ideation. He admitted that he had spent all of his money on cocaine and no longer had money to buy food. The patient was firmly confronted regarding his ongoing malingering, and discharge was ordered. FINAL DIAGNOSES 1. Cocaine use disorder. 2. Malingering. DISPOSITION ON DISCHARGE No psychotropic medications or followup were prescribed to the patient at the time of discharge. PROGNOSIS His prognosis remains poor. Dictated by... Deny Nick M.D. CB/evelyne TD: 11/20/2016 09:46 JOB #: [id number] DISCHARGE SUMMARY Page 1 of 1 X Deny Nick MD X DISCHARGE SUMMARY
--- NOTE | ~2016-11-17 | PA ---
Unit #: [id number] #: [id number] Patient: PAUL SHI [id number] [facility] [address] [place] [address] [id number] MR#: [id number] NAME: PAUL SHI ROOM: [facility] Age: 36 Sex: M Admission Date: 11/17/2016 : 1980 Date of Assessment: 11/17/2016 Attending Physician: Deny Nick M.D. Admitting Physician: Deny Nick M.D. Primary Care Physician: Generic Doctor Not In System PSYCHIATRIC ASSESSMENT IDENTIFYING INFORMATION The patient is a 36-year-old male admitted from [facility] where he had presented claiming to be having suicidal ideation. INFORMANT(S) Patient and chart. RELIABILITY Poor. CHIEF COMPLAINT None given. HISTORY OF PRESENT ILLNESS The patient is a 36-year-old male well-known to this physician from multiple previous admissions to this facility. The patient is a malingerer and has in fact admitted as much stating that he comes to this facility when he "gets bored" or when he runs out of food. Having been discharged almost immediately upon his last discharge from this facility, the patient this morning went to the [facility] emergency room seeking admission complaining of neck pain. When discharged from that facility, he walked to [facility] and claimed to be having thoughts of suicidal ideation with plan to shoot himself using a pellet gun. He has never made a credible suicide attempt. He states to this physician today that he has "spent all of his money on cocaine" and is now unable to afford food. For a more complete history of present illness, please refer to previous dictated notes. PAST PSYCHIATRIC HISTORY Reviewed, no changes. FAMILY HISTORY/SOCIAL HISTORY Reviewed, no changes. MEDICAL HISTORY Reviewed, no changes. MEDICATION HISTORY None. ALLERGIES None. Unit #: [id number] #: [id number] Patient: PAUL SHI MENTAL STATUS EXAM At this time, reveals the patient to be a well-developed, well-nourished, heavily tattooed male appearing his stated age. He is in no apparent physical distress at time of examination. He is awake, alert, oriented in all spheres. His mood is calm. His affect congruent. Speech is generally evasive. There are no gross deficits in memory or cognition noted. Intelligence is judged to be in the average range based on fund of knowledge. The patient is generally cooperative during interview. He is currently denying suicidal or homicidal ideation and denies any psychotic symptoms. His judgement and insight appear to be baseline. ASSETS AND LIABILITIES Patient's assets to be assessed. Liabilities, ongoing malingering. ADMITTING DIAGNOSES 1. Cocaine use disorder. 2. Malingering. HOSPITAL COURSE The patient will be discharged immediately given his well-documented history of malingering. Details of his discharge will be included in the discharge summary. Dictated by... Deny Nick M.D. NADEGE/rajesh TD: 11/17/2016 18:30 JOB #: [id number] PSYCHIATRIC ASSESSMENT Page 1 of 1 X Deny Nick MD X PSYCHIATRIC ASSESSMENT
--- NOTE | ~2016-11-17 | HP ---
Unit #: [id number] #: [id number] Patient: BRODERICK SHI [id number] [facility] [address] [place] [address] [id number] MR#: [id number] NAME: BRODERICK SHI ROOM: 83 Age: 36 Sex: M Admission Date: 11/17/2016 : 1980 Attending Physician: Deny Nick M.D. Admitting Physician: Deny Nick M.D. Primary Care Physician: Generic Doctor Not In System HISTORY AND PHYSICAL Broderick is a 36 year old who was admitted and discharged within the first 24 hours. He was not seen for an H and P. Dictated by... Dayna Avila P.A.-C. for Marcos Pardo/rajesh TD: 11/17/2016 20:16 JOB #: [id number] HISTORY AND PHYSICAL Page 1 of 1 X Dayna Avila X HISTORY AND PHYSICAL
== END 2016-11-17 18:15 | DRG 897 ==
LOC: P1E 08:43
DX: F11.10 Opioid abuse, uncomplicated (principal); R45.851 Suicidal ideations; Z76.5 Malingerer [conscious simulation]